=== PATIENT | female | born 2000 | race Caucasian/White ===

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

== ENCOUNTER → 2020-03-27 | Outpatient (CLI) | payer SELFPAY ==
[~2020-03-27] MED LIST changes: +ONDA4ODT MM; +SERTRALINE PO
[2020-03-27 19:34] LABS: BASOPHILS ABSOLUTE AUTO 0.04 K/mm3 (0.00-0.23); BASOPHILS PERCENT AUTO 1 % (0-2); EOSINOPHILS ABSOLUTE AUTO 0.08 K/mm3 (0.00-0.68); EOSINOPHILS PERCENT AUTO 1 % (0-6); Hematocrit 43.3 % (33.0-51.0); Hemoglobin 14.7 g/dL (11.5-16.0); IMMATURE GRAN ABSOLUTE AUTO 0.02 K/mm3 (0.00-0.10); IMMATURE GRAN PERCENT AUTO 0 % (0-1); LYMPHOCYTES ABSOLUTE AUTO 1.89 K/mm3 (0.84-5.20); LYMPHOCYTES PERCENT AUTO 28 % (21-46); MONOCYTES ABSOLUTE AUTO 0.42 K/mm3 (0.16-1.47); MONOCYTES PERCENT AUTO 6 % (4-13); Mean Corpuscular HGB 33.8 pg (26.0-34.0); Mean Corpuscular HGB Conc 33.9 g/dL (31.5-36.5); Mean Corpuscular Volume 100 fL (80-100); Mean Platelet Volume 8.7 fL (9.1-12.4); NEUTROPHILS ABSOLUTE AUTO 4.38 K/mm3 (1.96-9.15); NEUTROPHILS PERCENT AUTO 64 % (41-73); Platelet Count 261 K/mm3 (150-400); RDW Coefficient Variation 11.6 % (11.7-14.2); RDW Standard Deviation 42.5 fL (35.1-46.3); Red Blood Cell Count 4.35 M/mm3 (3.80-5.20); White Blood Cell Count 6.83 K/mm3 (4.00-11.30)
[2020-03-27 20:08] LABS: Alanine Aminotransfer (ALT/SGP 25 U/L (12-78); Albumin, Blood 4.2 g/dL (3.4-5.0); Alk Phos 69 U/L (50-136); Anion Gap 7 mmol/L (6-16); Aspartate Aminotrans (AST/SGOT 17 U/L (12-37); Bilirubin, Total 0.3 mg/dL (0.1-1.0); Blood Urea Nitrogen 22 mg/dL (8-24); Bun/Creatinine Ratio 26.8 (12.0-20.0); CO2, Blood 25 mmol/L (21-32); Calcium, Blood 9.8 mg/dL (8.5-10.1); Chloride, Blood 108 mmol/L (98-108); Creatinine, Blood 0.82 mg/dL (0.40-1.00); Free Thyroxine 0.95 ng/dL (0.70-1.60); Globulin, Blood 4.1 g/dL (2.2-4.0); Glomerular Filtration Rate >60 (60-); Glucose, Blood 95 mg/dL (70-99); Potassium, Blood 3.7 mmol/L (3.5-5.5); Sodium, Blood 140 mmol/L (136-145); Total Protein, Blood 8.3 g/dL (6.4-8.2)
[2020-03-27 20:12] LABS: Thyroid Stimulating Hormone 0.879 uIU/mL (0.360-4.800)
== END | disposition home or self-care (01) ==
LOC: LAB SHORT 17:38
PROVIDERS: Family Medicine
DX: Z00.00 Encounter for general adult medical examination without abnormal findings (principal)
CPT/HCPCS: 80053; 84439; 84443; 85025

== ENCOUNTER 2022-02-21 19:39 | Emergency (ER) | payer OTHER ==
[~2022-02-21] VITALS: Ht 165.1 cm; Wt 82.5 kg
[2022-02-21] MEDS ORDERED: AZIT500 PO (20:19)
== END 2022-02-21 20:25 | disposition home or self-care (01) ==
LOC: ER 19:39
DX: H66.92 Otitis media, unspecified, left ear (principal); J06.9 Acute upper respiratory infection, unspecified; Z88.0 Allergy status to penicillin; Z79.899 Other long term (current) drug therapy; Z87.891 Personal history of nicotine dependence
CPT/HCPCS: 99282

== ENCOUNTER → 2022-07-03 | Outpatient (CLI) | payer OTHER ==
[~2022-07-03] MED LIST changes: +AZIT500 PO; +PROG100 PO; +SUMA25 PO; +TRAZ50 PO
[2022-07-03 11:57] LABS: RETICULOCYTE ABSOLUTE 0.1581 M/mm3 (0.0200-0.1100)
[2022-07-03 13:09] LABS: Albumin, Blood 3.9 g/dL (3.4-5.0); Albumin/Globulin Ratio 1.1 (0.8-1.8); Bilirubin, Total 1.7 mg/dL (0.1-1.0); Bun/Creatinine Ratio 38.2 (12.0-20.0); Calcium, Blood 8.8 mg/dL (8.5-10.1); Creatinine, Blood 0.63 mg/dL (0.40-1.00); Globulin, Blood 3.4 g/dL (2.2-4.0); Potassium, Blood 3.6 mmol/L (3.5-5.5); Total Protein, Blood 7.3 g/dL (6.4-8.2)
[2022-07-03 13:41] LABS: BASOPHILS ABSOLUTE AUTO 0.02 K/mm3 (0.00-0.23); BASOPHILS PERCENT AUTO 0 % (0-2); Hematocrit 19.3 % (33.0-51.0); Hemoglobin 6.2 g/dL (11.5-16.0); IMMATURE GRAN PERCENT AUTO 0 % (0-1); MONOCYTES PERCENT AUTO 5 % (4-13); Mean Corpuscular HGB 36.3 pg (26.0-34.0); Mean Corpuscular HGB Conc 32.1 g/dL (31.5-36.5); Mean Corpuscular Volume 113 fL (80-100); Mean Platelet Volume 10.8 fL (9.1-12.4); Platelet Count 121 K/mm3 (150-400); RDW Coefficient Variation 15.5 % (11.7-14.2); Red Blood Cell Count 1.71 M/mm3 (3.80-5.20); White Blood Cell Count 4.87 K/mm3 (4.00-11.30)
[2022-07-03 14:21] LABS: EOSINOPHILS ABSOLUTE AUTO 0.04 K/mm3 (0.00-0.68); EOSINOPHILS PERCENT AUTO 1 % (0-6); IMMATURE GRAN ABSOLUTE AUTO 0.01 K/mm3 (0.00-0.10); LYMPHOCYTES ABSOLUTE AUTO 1.76 K/mm3 (0.84-5.20); LYMPHOCYTES PERCENT AUTO 36 % (21-46); MONOCYTES ABSOLUTE AUTO 0.23 K/mm3 (0.16-1.47); NEUTROPHILS ABSOLUTE AUTO 2.81 K/mm3 (1.96-9.15); NEUTROPHILS PERCENT AUTO 58 % (41-73); NRBC ABSOLUTE 0.02 K/mm3 (0.00-0.02); NRBC Auto 0.4 /100 WBC (0.0-0.2)
== END | disposition home or self-care (01) ==
LOC: LAB SHORT 10:46 → LAB 10:46
PROVIDERS: Registered Nurse Oncology
DX: D53.9 Nutritional anemia, unspecified (principal)
CPT/HCPCS: 80053; 82977; 83010; 83615; 85025; 85045; 86880

== ENCOUNTER 2022-07-04 00:55 | Day surgery (SDC) | payer OTHER ==
[~2022-07-04 00:55] MED LIST changes: -PROG100 PO; -SUMA25 PO; -TRAZ50 PO
[2022-07-04] MEDS ORDERED: SUMA25 PO (15:28)
[2022-07-04] MEDS ORDERED: TRAZ50 PO (15:29)
[2022-07-04] MEDS ORDERED: PROG100 PO (15:29)
== END 2022-07-04 18:00 | disposition home or self-care (01) ==
LOC: ATC 00:55
DX: D89.89 Other specified disorders involving the immune mechanism, not elsewhere classified (principal)
CPT/HCPCS: 36415; 36430; 86850; 86900; 86901; 86923; C1751; J7050; P9016

== ENCOUNTER → 2022-07-10 | Outpatient (CLI) | payer OTHER ==
[~2022-07-10] MED LIST changes: +CEPHALEXIN500 MG PO; +PROG100; +PROG100 PO; +SUMA25 PO; +TRAZ50 PO
[2022-07-10 13:02] LABS: Source, Urine Voided
[2022-07-10 15:35] LABS: Appearance, Urine Hazy (Clear); Bilirubin, Urine Neg (Neg); Blood, Urine 2+ (Neg); Color, Urine Yellow (P-Yellow); Glucose Qualitative, Urine Neg (Neg); Ketones, Urine Neg (Neg); Leukocyte Esterase, Urine Neg (Neg); Nitrite, Urine Neg (Neg); Protein, Urine 1+ (Neg); Specific Gravity, Urine 1.025 (1.003-1.022); Urobilinogen, Urine NORM (Normal)
[2022-07-10 16:07] LABS: Bacteria Many /hpf; Red Blood Cells, Urine 50-100 /hpf (0-2); Squamous Epithelial Cells Few /hpf (Few); Transitional Epithelial Cells Rare /hpf (0-Rare); White Blood Cells, Urine 0-2 /hpf (0-5)
== END | disposition home or self-care (01) ==
LOC: LAB 12:59 → LAB SHORT 12:59
PROVIDERS: Registered Nurse Oncology
DX: D89.89 Other specified disorders involving the immune mechanism, not elsewhere classified (principal); D75.89 Other specified diseases of blood and blood-forming organs; D50.9 Iron deficiency anemia, unspecified; R94.5 Abnormal results of liver function studies; D51.9 Vitamin B12 deficiency anemia, unspecified
CPT/HCPCS: 81001

== ENCOUNTER 2022-07-11 14:25 | Day surgery (SDC) | payer OTHER ==
[~2022-07-11 14:25] MED LIST changes: -CEPHALEXIN500 MG PO; -PROG100
[2022-07-11] MEDS ORDERED: CEPHALEXIN500 MG PO (15:52)
[2022-07-11] MEDS ORDERED: PROG100 (15:53)
== END 2022-07-11 15:10 | disposition home or self-care (01) ==
LOC: ATC 14:25
DX: Z45.2 Encounter for adjustment and management of vascular access device (principal); D50.9 Iron deficiency anemia, unspecified; D89.89 Other specified disorders involving the immune mechanism, not elsewhere classified
CPT/HCPCS: 99211

== ENCOUNTER 2022-07-17 15:02 | Day surgery (SDC) | payer OTHER | END 2022-07-17 15:44 | disposition home or self-care (01) | LOC: ATC 15:02 | DX: D50.9 Iron deficiency anemia, unspecified (principal); D89.89 Other specified disorders involving the immune mechanism, not elsewhere classified | CPT/HCPCS: 99211 ==

== ENCOUNTER → 2022-07-17 | Outpatient (CLI) | payer OTHER ==
[~2022-07-17] MED LIST changes: +CEPHALEXIN500 MG PO; +PROG100
[2022-07-17 15:23] LABS: Albumin, Blood 3.5 g/dL (3.4-5.0); Albumin/Globulin Ratio 1.2 (0.8-1.8); Bilirubin, Total 1.4 mg/dL (0.1-1.0); Bun/Creatinine Ratio 34.6 (12.0-20.0); Calcium, Blood 8.6 mg/dL (8.5-10.1); Creatinine, Blood 0.69 mg/dL (0.40-1.00); Potassium, Blood 4.1 mmol/L (3.5-5.5); Total Protein, Blood 6.5 g/dL (6.4-8.2)
== END | disposition home or self-care (01) ==
LOC: LAB 15:02 → LAB SHORT 15:02
PROVIDERS: Registered Nurse Oncology
DX: D58.9 Hereditary hemolytic anemia, unspecified (principal)
CPT/HCPCS: 80053

== ENCOUNTER 2022-07-24 01:17 | Day surgery (SDC) | payer OTHER ==
[2022-07-24 10:19] VITALS: BP 131/65
[2022-07-24] MEDS ORDERED: SULFAMETHOXAZO1 EAC1 PO (10:55)
[2022-07-24] MEDS ORDERED: DEXA4 PO (10:56)
== END 2022-07-24 10:29 | disposition home or self-care (01) ==
LOC: ATC 01:17
DX: D50.9 Iron deficiency anemia, unspecified (principal); D51.9 Vitamin B12 deficiency anemia, unspecified; Z87.891 Personal history of nicotine dependence; Z88.0 Allergy status to penicillin; Z91.040 Latex allergy status; Z79.899 Other long term (current) drug therapy
CPT/HCPCS: 99211

== ENCOUNTER → 2022-10-01 | Outpatient (CLI) | payer OTHER ==
[~2022-10-01] MED LIST changes: +DEXA4 PO; +SULFAMETHOXAZO1 EAC1 PO
== END | disposition home or self-care (01) ==
LOC: LAB SHORT 16:36 → LAB 16:36
DX: R19.7 Diarrhea, unspecified (principal)
CPT/HCPCS: 87177; 87209

== ENCOUNTER → 2022-12-21 | Outpatient (CLI) | payer OTHER ==
[~2022-12-21] MED LIST changes: +BENADRYL25 MG PO; +EFFEXOR XR37.5 MG PO; +KETO10 PO; +METO10 PO; +Methocarbamol750 MG PO; +NURTEC ODT75 MG PO; +OMEP20ER PO; +PROGESTERONE200 M1 PO; +REGLAN1013 PO; +Robaxin750 MG PO
== END ==
LOC: LAB 17:24 → LAB SHORT 17:24
DX: R30.0 Dysuria (principal); R31.9 Hematuria, unspecified
CPT/HCPCS: 87086

== ENCOUNTER 2022-12-24 03:39 | Emergency (ER) | payer OTHER ==
[~2022-12-24] VITALS: Ht 165.1 cm; Wt 81.7 kg
[~2022-12-24 03:39] MED LIST changes: -BENADRYL25 MG PO; -EFFEXOR XR37.5 MG PO; -KETO10 PO; -METO10 PO; -Methocarbamol750 MG PO; -NURTEC ODT75 MG PO; -OMEP20ER PO; -PROGESTERONE200 M1 PO; -REGLAN1013 PO; -Robaxin750 MG PO
[2022-12-24 05:05] LABS: BASOPHILS ABSOLUTE AUTO 0.01 K/mm3 (0.00-0.23); BASOPHILS PERCENT AUTO 0 % (0-2); EOSINOPHILS ABSOLUTE AUTO 0.04 K/mm3 (0.00-0.68); EOSINOPHILS PERCENT AUTO 1 % (0-6); Hematocrit 18.5 % (33.0-51.0); IMMATURE GRAN ABSOLUTE AUTO 0.02 K/mm3 (0.00-0.10); IMMATURE GRAN PERCENT AUTO 0 % (0-1); LYMPHOCYTES ABSOLUTE AUTO 1.17 K/mm3 (0.84-5.20); LYMPHOCYTES PERCENT AUTO 16 % (21-46); MONOCYTES ABSOLUTE AUTO 0.32 K/mm3 (0.16-1.47); MONOCYTES PERCENT AUTO 5 % (4-13); Mean Corpuscular HGB 35.4 pg (26.0-34.0); Mean Corpuscular HGB Conc 30.8 g/dL (31.5-36.5); Mean Corpuscular Volume 115 fL (80-100); Mean Platelet Volume 11.6 fL (9.1-12.4); NEUTROPHILS ABSOLUTE AUTO 5.63 K/mm3 (1.96-9.15); NEUTROPHILS PERCENT AUTO 78 % (41-73); NRBC ABSOLUTE 0.03 K/mm3 (0.00-0.02); NRBC Auto 0.4 /100 WBC (0.0-0.2); Platelet Count 90 K/mm3 (150-400); RDW Coefficient Variation 16.9 % (11.7-14.2); RDW Standard Deviation 66.2 fL (35.1-46.3); Red Blood Cell Count 1.61 M/mm3 (3.80-5.20); White Blood Cell Count 7.19 K/mm3 (4.00-11.30)
[2022-12-24 05:32] LABS: Alanine Aminotransfer (ALT/SGP 93 U/L (12-78); Albumin, Blood 4.5 g/dL (3.4-5.0); Albumin/Globulin Ratio 1.2 (0.8-1.8); Alk Phos 76 U/L (50-136); Aspartate Aminotrans (AST/SGOT 177 U/L (12-37); Bilirubin, Direct 0.2 mg/dL (0.0-0.3); Bilirubin, Indirect 1.2 mg/dL (0.1-0.7); Bilirubin, Total 1.4 mg/dL (0.1-1.0); Blood Urea Nitrogen 17 mg/dL (8-24); Bun/Creatinine Ratio 22.5 (12.0-20.0); CO2, Blood 26 mmol/L (21-32); Calcium, Blood 9.4 mg/dL (8.5-10.1); Creatinine, Blood 0.76 mg/dL (0.40-1.00); Globulin, Blood 3.7 g/dL (2.2-4.0); Glomerular Filtration Rate 112 (60-); Glucose, Blood 103 mg/dL (70-99); Magnesium, Blood 2.4 mg/dL (1.6-2.4); Total Protein, Blood 8.2 g/dL (6.4-8.2)
[2022-12-24 05:36] LABS: Hemoglobin 5.7 g/dL (11.5-16.0)
[2022-12-24 05:49] LABS: Acetaminophen, Random <2.0 ug/mL (10.0-30.0)
[2022-12-24] MEDS ORDERED: METO10 PO (06:08)
[2022-12-24] MEDS ORDERED: Robaxin750 MG PO (06:08)
[2022-12-24 06:32] VITALS: BP 120/81
[2022-12-24 13:33] LABS: Anion Gap 7 mmol/L (6-16); Chloride, Blood 106 mmol/L (98-108); Sodium, Blood 139 mmol/L (136-145)
[2022-12-26] MEDS ORDERED: EFFEXOR XR37.5 MG PO (23:21)
[2022-12-26] MEDS ORDERED: BENADRYL25 MG PO (23:22)
[2022-12-26] MEDS ORDERED: PROGESTERONE200 M1 PO (23:24)
[2022-12-26] MEDS ORDERED: Methocarbamol750 MG PO (23:25)
[2022-12-26] MEDS ORDERED: REGLAN1013 PO (23:26)
[2022-12-28] MEDS ORDERED: KETO10 PO (12:14)
[2022-12-28] MEDS ORDERED: OMEP20ER PO (12:15)
[2022-12-28] MEDS ORDERED: ONDA4ODT MM (12:15)
[2022-12-28] MEDS ORDERED: NURTEC ODT75 MG PO (12:15)
== END 2022-12-24 06:33 | disposition left against medical advice (07) ==
LOC: ER 03:39
PROVIDERS: Student in an Organized Health Care Education/Training Program
DX: G43.909 Migraine, unspecified, not intractable, without status migrainosus (principal); D64.9 Anemia, unspecified; M62.838 Other muscle spasm; T39.1X1A Poisoning by 4-Aminophenol derivatives, accidental (unintentional), initial encounter; R74.01 Elevation of levels of liver transaminase levels; D58.9 Hereditary hemolytic anemia, unspecified; M54.2 Cervicalgia; F17.200 Nicotine dependence, unspecified, uncomplicated; Z53.29 Procedure and treatment not carried out because of patient's decision for other reasons; Z88.0 Allergy status to penicillin; Z91.040 Latex allergy status
CPT/HCPCS: 80048; 80076; 83735; 85025; 96361; 96374; 96375; 99283-25; A9270; G0480; J1885; J7030

== ENCOUNTER 2023-01-04 10:31 | Emergency (ER) | payer OTHER ==
[~2023-01-04] VITALS: Ht 165.1 cm; Wt 81.7 kg
[~2023-01-04 10:31] MED LIST changes: +BENADRYL25 MG PO; +EFFEXOR XR37.5 MG PO; +KETO10 PO; +METO10 PO; +Methocarbamol750 MG PO; +NURTEC ODT75 MG PO; +OMEP20ER PO; +PROGESTERONE200 M1 PO; +REGLAN1013 PO; +Robaxin750 MG PO
[2023-01-04 11:45] LABS: BASOPHILS ABSOLUTE AUTO 0.03 K/mm3 (0.00-0.23); BASOPHILS PERCENT AUTO 0 % (0-2); EOSINOPHILS ABSOLUTE AUTO 0.01 K/mm3 (0.00-0.68); EOSINOPHILS PERCENT AUTO 0 % (0-6); Hematocrit 21.6 % (33.0-51.0); IMMATURE GRAN ABSOLUTE AUTO 0.04 K/mm3 (0.00-0.10); IMMATURE GRAN PERCENT AUTO 1 % (0-1); LYMPHOCYTES ABSOLUTE AUTO 1.09 K/mm3 (0.84-5.20); LYMPHOCYTES PERCENT AUTO 15 % (21-46); MONOCYTES ABSOLUTE AUTO 0.57 K/mm3 (0.16-1.47); MONOCYTES PERCENT AUTO 8 % (4-13); Mean Corpuscular HGB 32.4 pg (26.0-34.0); Mean Corpuscular HGB Conc 32.4 g/dL (31.5-36.5); Mean Corpuscular Volume 100 fL (80-100); Mean Platelet Volume 11.7 fL (9.1-12.4); NEUTROPHILS ABSOLUTE AUTO 5.38 K/mm3 (1.96-9.15); NEUTROPHILS PERCENT AUTO 76 % (41-73); NRBC ABSOLUTE 0.02 K/mm3 (0.00-0.02); NRBC Auto 0.3 /100 WBC (0.0-0.2); RDW Standard Deviation 57.4 fL (35.1-46.3); Red Blood Cell Count 2.16 M/mm3 (3.80-5.20); White Blood Cell Count 7.12 K/mm3 (4.00-11.30)
[2023-01-04 11:46] LABS: Albumin, Blood 4.1 g/dL (3.4-5.0); Albumin/Globulin Ratio 1.2 (0.8-1.8); Bilirubin, Total 1.8 mg/dL (0.1-1.0); Bun/Creatinine Ratio 18.6 (12.0-20.0); Calcium, Blood 9.1 mg/dL (8.5-10.1); Creatinine, Blood 0.7 mg/dL (0.40-1.00); Globulin, Blood 3.5 g/dL (2.2-4.0); Potassium, Blood 3.6 mmol/L (3.5-5.5); Total Protein, Blood 7.6 g/dL (6.4-8.2)
[2023-01-04 11:47] LABS: Platelet Count 38 K/mm3 (150-400)
[2023-01-04 14:15] VITALS: BP 110/73
[2023-01-04 14:38] LABS: Source, Urine Clean Catch
[2023-01-04 14:43] LABS: Appearance, Urine Cloudy (Clear); Bilirubin, Urine Neg (Neg); Blood, Urine 2+ (Neg); Color, Urine Yellow (P-Yellow); Glucose Qualitative, Urine Neg (Neg); Ketones, Urine 4+ (Neg); Leukocyte Esterase, Urine 1+ (Neg); Nitrite, Urine Neg (Neg); Protein, Urine 2+ (Neg); Specific Gravity, Urine 1.015 (1.003-1.022); Urobilinogen, Urine 2+ (Normal)
[2023-01-04 14:51] LABS: Amorphous Light (0-Heavy); Bacteria Many /hpf; Squamous Epithelial Cells Many /hpf (Few)
[2023-01-04 14:55] LABS: U Amphetamine Screen Not Detected; U Barbituate Screen Not Detected; U Benzodiazapine Screen Not Detected; U Buprenorphine Screen Not Detected; U Cannabinoids Screen Not Detected; U Cocaine Screen Not Detected; U Methadone Screen Not Detected; U Methamphetamine Screen Not Detected; U Opiates Screen Not Detected; U Oxycodone Screen Not Detected; U Phencyclidine Screen Not Detected; U Propoxyphene Screen Not Detected
== END 2023-01-04 16:09 | disposition left against medical advice (07) ==
LOC: ER 10:31
PROVIDERS: Emergency Medicine
DX: R20.0 Anesthesia of skin (principal); G43.909 Migraine, unspecified, not intractable, without status migrainosus; D64.9 Anemia, unspecified; Z88.0 Allergy status to penicillin; Z91.041 Radiographic dye allergy status; Z79.899 Other long term (current) drug therapy; F17.200 Nicotine dependence, unspecified, uncomplicated
CPT/HCPCS: 70553; 71045; 80053; 81001; 81025; 83690; 85025; 86850; 86900; 86901; 87086; 99284-25; A9579

== ENCOUNTER 2024-05-25 09:24 | Emergency (ER) | payer OTHER ==
[~2024-05-25] VITALS: Ht 165.1 cm; Wt 81.7 kg
[2024-05-25] MEDS ORDERED: ELIQUIS5 M2 PO (09:38)
[2024-05-25 10:09] LABS: BASOPHILS ABSOLUTE AUTO 0.08 K/mm3 (0.00-0.23); BASOPHILS PERCENT AUTO 1 % (0-2); EOSINOPHILS ABSOLUTE AUTO 0.04 K/mm3 (0.00-0.68); EOSINOPHILS PERCENT AUTO 0 % (0-6); Hematocrit 34.6 % (33.0-51.0); Hemoglobin 12.6 g/dL (11.5-16.0); IMMATURE GRAN ABSOLUTE AUTO 0.33 K/mm3 (0.00-0.10); IMMATURE GRAN PERCENT AUTO 2 % (0-1); LYMPHOCYTES ABSOLUTE AUTO 1.97 K/mm3 (0.84-5.20); LYMPHOCYTES PERCENT AUTO 13 % (21-46); MONOCYTES ABSOLUTE AUTO 0.93 K/mm3 (0.16-1.47); MONOCYTES PERCENT AUTO 6 % (4-13); Mean Corpuscular HGB 34.1 pg (26.0-34.0); Mean Corpuscular HGB Conc 36.4 g/dL (31.5-36.5); Mean Corpuscular Volume 94 fL (80-100); Mean Platelet Volume 9.1 fL (9.1-12.4); NEUTROPHILS ABSOLUTE AUTO 11.74 K/mm3 (1.96-9.15); NEUTROPHILS PERCENT AUTO 78 % (41-73); Platelet Count 233 K/mm3 (150-400); RDW Coefficient Variation 15.1 % (11.7-14.2); RDW Standard Deviation 48.8 fL (35.1-46.3); Red Blood Cell Count 3.69 M/mm3 (3.80-5.20); White Blood Cell Count 15.09 K/mm3 (4.00-11.30)
[2024-05-25] MEDS ORDERED: Aspirin 325 MG Tab PO ONE (10:15)
[2024-05-25] MEDS ORDERED: OXYC5 PO (10:28)
[2024-05-25] MEDS ORDERED: [UNRECOGNIZED DRUG - OTHER] PO (10:29)
[2024-05-25 10:41] LABS: Bilirubin, Total 7.2 mg/dL (0.1-1.0); Bun/Creatinine Ratio 22.1 (12.0-20.0); Calcium, Blood 9.7 mg/dL (8.5-10.1); Creatinine, Blood 0.91 mg/dL (0.40-1.00); Potassium, Blood 3.8 mmol/L (3.5-5.5)
[2024-05-25] MEDS ORDERED: LORazepam 1 MG Tab PO ONE (10:50)
[2024-05-25] MEDS ORDERED: Ibuprofen 600 MG Tab PO ONE (10:55)
[2024-05-25] MEDS ORDERED: Acetaminophen 500 MG Tab PO ONE (10:55)
[2024-05-25 13:37] VITALS: BP 115/87
== END 2024-05-25 13:39 | disposition home or self-care (01) ==
LOC: ER 09:24
PROVIDERS: Physician Assistant
DX: R07.89 Other chest pain (principal); D59.9 Acquired hemolytic anemia, unspecified; F17.210 Nicotine dependence, cigarettes, uncomplicated; Z91.040 Latex allergy status; Z79.01 Long term (current) use of anticoagulants; Z79.890 Hormone replacement therapy; Z79.1 Long term (current) use of non-steroidal anti-inflammatories (NSAID); Z79.899 Other long term (current) drug therapy; Z79.630 Long term (current) use of alkylating agent
CPT/HCPCS: 71045; 71260; 80053; 83690; 84484; 84703; 85025; 93005; 93010; 99285-25; A9270; Q9967

== ENCOUNTER 2024-06-17 07:29 | Inpatient (IN) | payer OTHER ==
[~2024-06-17] VITALS: Ht 165.1 cm; Wt 103.2 kg
[~2024-06-17 07:29] MED LIST changes: +ELIQUIS5 M2 PO; +OXYC5 PO; +[UNRECOGNIZED DRUG - OTHER] PO
[2024-06-17] MEDS ORDERED: Ondansetron HCl 2 MG / ML 2ML Vial IV ONE (08:40)
[2024-06-17] MEDS ORDERED: HYDROmorphone HCl/Pf 1MG SYR IV ONE (08:40)
[2024-06-17] MEDS ORDERED: NS 1,000 ML IV SCH (08:40)
[2024-06-17 10:44] LABS: Albumin, Blood 3.5 g/dL (3.4-5.0); Albumin/Globulin Ratio 0.9 (0.8-1.8); Alk Phos 111 U/L (50-136); Anion Gap 11 mmol/L (3-11); Aspartate Aminotrans (AST/SGOT 640 U/L (12-37); Bilirubin, Total 7.7 mg/dL (0.1-1.0); Blood Urea Nitrogen 35 mg/dL (8-24); Bun/Creatinine Ratio 24.5 (12.0-20.0); CO2, Blood 23 mmol/L (21-32); Calcium, Blood 8.9 mg/dL (8.5-10.1); Chloride, Blood 105 mmol/L (98-108); Creatinine, Blood 1.43 mg/dL (0.40-1.00); Glomerular Filtration Rate 52 (60-); Glucose, Blood 92 mg/dL (70-99); Potassium, Blood 2.7 mmol/L (3.5-5.5); Sodium, Blood 136 mmol/L (136-145); Total Protein, Blood 7.5 g/dL (6.4-8.2)
[2024-06-17] MEDS ORDERED: Lactated Ringer's 1,000 ML IV ONE (10:50)
[2024-06-17] MEDS ORDERED: Prochlorperazine Edisylate 10 mg Vial IV ONE (10:55)
[2024-06-17 11:00] LABS: BASOPHILS ABSOLUTE AUTO 0.04 K/mm3 (0.00-0.23); BASOPHILS PERCENT AUTO 0 % (0-2); EOSINOPHILS ABSOLUTE AUTO 0.01 K/mm3 (0.00-0.68); EOSINOPHILS PERCENT AUTO 0 % (0-6); Hematocrit 21.3 % (33.0-51.0); IMMATURE GRAN ABSOLUTE AUTO 0.12 K/mm3 (0.00-0.10); IMMATURE GRAN PERCENT AUTO 1 % (0-1); LYMPHOCYTES ABSOLUTE AUTO 0.58 K/mm3 (0.84-5.20); LYMPHOCYTES PERCENT AUTO 5 % (21-46); MONOCYTES ABSOLUTE AUTO 0.35 K/mm3 (0.16-1.47); MONOCYTES PERCENT AUTO 3 % (4-13); Mean Corpuscular Volume 93 fL (80-100); Mean Platelet Volume 9.7 fL (9.1-12.4); NEUTROPHILS ABSOLUTE AUTO 10.28 K/mm3 (1.96-9.15); NEUTROPHILS PERCENT AUTO 90 % (41-73); NRBC ABSOLUTE 0.05 K/mm3 (0.00-0.02); NRBC Auto 0.4 /100 WBC (0.0-0.2); Platelet Count 145 K/mm3 (150-400); RDW Coefficient Variation 16.3 % (11.7-14.2); RDW Standard Deviation 53.6 fL (35.1-46.3); RETICULOCYTE ABSOLUTE 0.1444 M/mm3 (0.0200-0.1100); RETICULOCYTE COUNT PERCENT 6.28 % (0.50-2.50); White Blood Cell Count 11.38 K/mm3 (4.00-11.30)
[2024-06-17 11:02] LABS: Hemoglobin 6.9 g/dL (11.5-16.0); Mean Corpuscular HGB 30.9 pg (26.0-34.0)
[2024-06-17 11:03] LABS: Mean Corpuscular HGB Conc 32.9 g/dL (31.5-36.5)
[2024-06-17 12:07] LABS: Source, Urine Clean Catch
[2024-06-17 13:31] LABS: Appearance, Urine Bloody (Clear); Bilirubin, Urine Neg (Neg); Blood, Urine 4+ (Neg); Color, Urine Red (P-Yellow); Glucose Qualitative, Urine Neg (Neg); Ketones, Urine Neg (Neg); Leukocyte Esterase, Urine Neg (Neg); Nitrite, Urine Neg (Neg); Protein, Urine 4+ (Neg); Specific Gravity, Urine 1.015 (1.003-1.022); Urobilinogen, Urine NORM (Normal)
[2024-06-17 13:41] LABS: Bacteria Few /hpf; Red Blood Cells, Urine TNTC /hpf (0-2); Squamous Epithelial Cells Many /hpf (Few); White Blood Cells, Urine 0-2 /hpf (0-5)
[2024-06-17] MEDS ORDERED: Potassium Chloride 20 MEQ TabCR PO ONE (15:05)
[2024-06-17] MEDS ORDERED: Ondansetron HCl 2 MG / ML 2ML Vial IV PRN (17:30)
[2024-06-17] MEDS ORDERED: FLU VACC TS2024-25(6MOS UP)/PF 45 MCG/0.5 ML SYRINGE IM SCH (17:30)
[2024-06-17] MEDS ORDERED: NS 1,000 ML IV ONE ×2 (17:35→19:45)
[2024-06-17 19:07] VITALS: BP 119/81
[2024-06-17 19:42] LABS: Hematocrit 22.3 % (33.0-51.0); Hemoglobin 8.2 g/dL (11.5-16.0)
[2024-06-17] MEDS ORDERED: Acetaminophen 325 MG TABLET PO PRN (19:50)
[2024-06-17] MEDS ORDERED: ONDA4 PO (20:34)
[2024-06-18] VITALS (16 sets, daily range): BP systolic 105–140; BP diastolic 63–94
[2024-06-18 01:56] LABS: Hematocrit 17.5 % (33.0-51.0)
[2024-06-18] MEDS ORDERED: OxyCODONE HCL 10 MG TABCR PO PRN (02:50)
[2024-06-18] MEDS ORDERED: OxyCODONE HCL 5 MG TAB PO PRN ×2 (03:10→08:45)
[2024-06-18 03:24] LABS: Hemoglobin 5.8 g/dL (11.5-16.0)
--- NOTE | 2024-06-18 03:43 | NUR ---
SHIFT SUMMARY ADMITTED TO ROOM 325 AT 1930 ,HAVING LOWER ABDOMINAL PAIN, DELTA BLOOD IN URINE AND STOOL AND DIFFICULTY SWALLOWING. AWAITING A BED AT [facility]. HAS A REAR BLOOD DISORDER. VS HAVE BEEN STABLE, NO BM HOWEVER URINE VISUALIZED AND IS MAROON IN COLOR. BLADDER SCAN DONE AFTER A VOID OF 500 ML AT 0230 AND WAS 0 PT WAS REPORTING SENSATION IF NOT FULLY NOT EMPTYING. MEDICATED FOR A HEADACH WITH TYLENOL WHICH WAS EFFECTIVE, ABD PAIN WAS UNDER CONTROL ON ADMISSION HAD PAIN MEDS IN ED, PAIN RETURNED DURING THE NIGHT AND MD WAS NOTIFIED AND PT RECEIVED OXYCODONE 5MG. HGB 8.2 FOLLOWING BLOOD TRANFUSION IN ED (6.9 PRIOR TO TRANSFUSION). CRITICAL LAB VALUE AT 0145 HEMATOCRIT RESULTED AT 17.5 WHICH WAS A DROP AND DR WAS NOTIFIED (HGB RESULT WAS STILL PENDING D/T ISSUES WITH HEMOLYSIS OF THE SAMPLE & IT DID NOT RESULT UNTIL APPROX 0300 PER LAB WAS 5.[address] WAS NOTIFIED AND NEW ORDER FOR A STAT H& H. STST H& H DRAWN 0400 & RESULTS PENDING. PT DENIES ANY WEAKNESS, LIGHTHEADEDNES DIZZINESS AGREES TO NOTIFY STAFF WITH EACH VOID AND IF HAS ANY OF ABOVE SX. BP REMAINS STABLE (0400) BP 125/78 AT 0210 AND 119/85 AT 0400 HAS BEEN IN NSR PER TELEMETRY EXCEPT HR 140-150 PER TELETECH FOR ABOUT 10 MINUTES AT 0025 AT WHICH TIME PT WAS UP TO BATHROOM.
[2024-06-18 04:52] LABS: Hematocrit 16.4 % (33.0-51.0)
[2024-06-18] MEDS ORDERED: NS 500 ML IV SCH (05:20)
[2024-06-18 06:25] LABS: Hemoglobin 5.5 g/dL (11.5-16.0)
[2024-06-18] MEDS ORDERED: Morphine Sulfate 4 MG/1 ML Injection IV PRN (08:45)
[2024-06-18] MEDS ORDERED: Acetaminophen 500 MG Tab PO PRN (08:45)
[2024-06-18] MEDS ORDERED: Metoclopramide HCl 5MG / ML 2ML Vial IV PRN ×2 (08:45→15:25)
[2024-06-18] MEDS ORDERED: LORazepam 2 MG/ML 1ML Injection IV ONE (09:00)
[2024-06-18] MEDS ORDERED: Misc. Capsule PO SCH (09:00)
--- NOTE | 2024-06-18 09:00 | NUR ---
Pt sitting up in bed awake a/ox4, she is a bit nauseated but too early for cam, family in room, Dr. Chavira in room, she is a bit tearful states she doesn't feel good, will place orders for antiemetic, and will transfuse a unit of prbc, lungs are clear t/o, on r/a, no cough noted, hrr, no edema noted, power glide placed this am, difficult to draw from power glide, up to br with one person assist, call light in reach.
[2024-06-18 09:15] LABS: BASOPHILS ABSOLUTE AUTO 0.07 K/mm3 (0.00-0.23); BASOPHILS PERCENT AUTO 1 % (0-2); EOSINOPHILS ABSOLUTE AUTO 0.06 K/mm3 (0.00-0.68); EOSINOPHILS PERCENT AUTO 1 % (0-6); IMMATURE GRAN ABSOLUTE AUTO 0.09 K/mm3 (0.00-0.10); IMMATURE GRAN PERCENT AUTO 1 % (0-1); LYMPHOCYTES ABSOLUTE AUTO 2.16 K/mm3 (0.84-5.20); LYMPHOCYTES PERCENT AUTO 17 % (21-46); MONOCYTES ABSOLUTE AUTO 0.72 K/mm3 (0.16-1.47); MONOCYTES PERCENT AUTO 6 % (4-13); Mean Corpuscular HGB 29.7 pg (26.0-34.0); Mean Corpuscular HGB Conc 32.3 g/dL (31.5-36.5); Mean Corpuscular Volume 92 fL (80-100); Mean Platelet Volume 9.7 fL (9.1-12.4); NEUTROPHILS ABSOLUTE AUTO 9.99 K/mm3 (1.96-9.15); NEUTROPHILS PERCENT AUTO 76 % (41-73); NRBC ABSOLUTE 0.08 K/mm3 (0.00-0.02); NRBC Auto 0.6 /100 WBC (0.0-0.2); Platelet Count 196 K/mm3 (150-400); RDW Coefficient Variation 17.5 % (11.7-14.2); RDW Standard Deviation 56.6 fL (35.1-46.3); Red Blood Cell Count 1.82 M/mm3 (3.80-5.20); White Blood Cell Count 13.09 K/mm3 (4.00-11.30)
--- NOTE | 2024-06-18 09:18 | NUR ---
PATIENT STATES SHE SPOKE WITH DR. SELINA NETTLES, CLINICAL RESEARCH MONITOR @ [facility] YESTERDAY AND HE SUGGESTED HAVING IMAGING DONE TO RULE OUT ULCERATION OR BLOOD CLOT IN THE UPPER STOMACH.
[2024-06-18 09:26] LABS: Hematocrit 16.7 % (33.0-51.0); Hemoglobin 5.4 g/dL (11.5-16.0)
[2024-06-18 09:32] LABS: Albumin, Blood 3.5 g/dL (3.4-5.0); Albumin/Globulin Ratio 0.9 (0.8-1.8); Alk Phos 110 U/L (50-136); Anion Gap 9 mmol/L (3-11); Aspartate Aminotrans (AST/SGOT 1032 U/L (12-37); Bilirubin, Total 5.6 mg/dL (0.1-1.0); Blood Urea Nitrogen 32 mg/dL (8-24); Bun/Creatinine Ratio 21.2 (12.0-20.0); CO2, Blood 23 mmol/L (21-32); Calcium, Blood 8.9 mg/dL (8.5-10.1); Chloride, Blood 110 mmol/L (98-108); Creatinine, Blood 1.51 mg/dL (0.40-1.00); Globulin, Blood 3.7 g/dL (2.2-4.0); Glomerular Filtration Rate 49 (60-); Glucose, Blood 65 mg/dL (70-99); Potassium, Blood 3.6 mmol/L (3.5-5.5); Sodium, Blood 138 mmol/L (136-145); Total Protein, Blood 7.2 g/dL (6.4-8.2)
--- NOTE | 2024-06-18 10:58 | NUR ---
transfusion running, pt heart rate keeps increasing to 120's when pt gets up to br, she is sweating and nauseated again, zofran given with good results, sipping on starry at this time, call light in reach.
--- NOTE | 2024-06-18 11:00 | NUR ---
urine is maroon colored, pt states she has to push to void. will be moving to pcu as soon as bed available. call light in reach. family in room.
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
--- NOTE | 2024-06-18 12:27 | NUR ---
Report given to Ruben DUARTE, took pt to pcu 1 via bed with all her belongings.
--- NOTE | 2024-06-18 13:45 | NUR ---
ARRIVAL TO PCU PT ARRIVED TO PCU 1 AT APPROXIMATELY 1220. PT A&Ox4, CALLS AND COMMUNICATES NEEDS APPROPRIATELY. 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 PT SBA WITH AMBULATION. PT ARRIVED WHILE BLOOD TRANSFUSING. BP STABLE, SINUS 80's, DENIES CP/PRESSURE. SpO2> 92% RA, DENIES SOB, LUNGS CLEAR. CONTINENT OF URINE AND BOWEL. URINE IS VERY DARK RED AND PT REPORTS HAVING TO PUT EFFORT INTO STARTING VOID. NO C/O PAIN. FAMILY AT BEDSIDE. CALL LIGHT IN REACH, BED IN LOWEST POSITION.
--- NOTE | 2024-06-18 13:47 | NUR ---
BLOOD TRANSFUSION PAUSED FOR STAT LAB DRAW PER PHYSICIAN
--- NOTE | 2024-06-18 14:13 | NUR ---
BLOOD TRANSFUSION RESTARTED, LAB DRAWN DONE.
[2024-06-18 14:34] LABS: Hematocrit 18.6 % (33.0-51.0); Hemoglobin 6.6 g/dL (11.5-16.0); IMMATURE RETIC FRACTION 30.7 % (2.3-16.0); RETIC HGB EQUIVALENT 29.2 pg (28.20-36.60); RETICULOCYTE ABSOLUTE 0.1169 M/mm3 (0.0200-0.1100); RETICULOCYTE COUNT PERCENT 5.76 % (0.50-2.50)
[2024-06-18 14:52] LABS: Bilirubin, Direct <0.1 mg/dL (0.0-0.3); Bilirubin, Total 4.9 mg/dL (0.1-1.0)
[2024-06-18] MEDS ORDERED: NS 250 ML IV ONE (15:35)
[2024-06-18 15:50] LABS: Bilirubin, Indirect Unable to Calculate mg/dL (0.1-0.7); Lactate Dehydrogenase (Ld),Bld 7218 U/L (100-240)
[2024-06-18 16:56] LABS: Source, Urine Clean Catch
[2024-06-18 17:03] LABS: Hematocrit 22.4 % (33.0-51.0); Hemoglobin 8.1 g/dL (11.5-16.0)
[2024-06-18 17:05] LABS: Appearance, Urine Bloody (Clear); Bilirubin, Urine Neg (Neg); Blood, Urine 5+ (Neg); Color, Urine Red (P-Yellow); Glucose Qualitative, Urine Neg (Neg); Ketones, Urine Neg (Neg); Leukocyte Esterase, Urine Neg (Neg); Nitrite, Urine Neg (Neg); Protein, Urine 4+ (Neg); Urobilinogen, Urine NORM (Normal)
[2024-06-18 17:34] LABS: Bacteria Many /hpf; Squamous Epithelial Cells Many /hpf (Few); Transitional Epithelial Cells Rare /hpf (0-Rare)
[2024-06-18 17:35] LABS: Amorphous Heavy (0-Heavy); Mucus Light (0-Heavy)
--- NOTE | 2024-06-18 18:32 | NUR ---
SHIFT SUMMARY SEE PREVIOUS NOTES. NO ACUTE CHANGES. VSS. MANAGED PAIN AND NAUSEA PER EMAR. PT CONTINUES TO HAVE HEMATURIA & BLOODY STOOL. FAMILY AT BEDSIDE. AWAITING COBRA TRANSFER. NO OTHER EVENTS, WILL REPORT TO ONCOMING RN.
[2024-06-18 19:04] LABS: Hematocrit 22.1 % (33.0-51.0); Hemoglobin 7.9 g/dL (11.5-16.0)
[2024-06-18 21:02] LABS: Hemoglobin 7.9 g/dL (11.5-16.0)
--- NOTE | 2024-06-18 21:22 | NUR ---
[facility] CALLED BACK TO [facility] AND REQUESTED [facility] TO LOOK FOR ALTERNATIVE BED FOR PATIENT. THERE IS AVALIABLE BED IN [place] ON [address]. [facility] TO CONTACT [facility] ADVERTISING SPECIALIST IN REGARDS.
[2024-06-18 23:04] LABS: Hematocrit 21.1 % (33.0-51.0); Hemoglobin 7.4 g/dL (11.5-16.0)
--- NOTE | 2024-06-18 23:05 | NUR ---
PATIENT ACCEPTED TO [facility] IN [place]-AT THIS TIME WE ARE AWAITING A ROOM- ONCE ROOM KNOWN TRANSPORT WILL BE ARRANGED.
[2024-06-19 00:06] VITALS: BP 140/91
--- NOTE | 2024-06-19 00:11 | NUR ---
SHIFT SUMMARY. TRANSPORT CAME TO [facility] PATIENT AT 0005, PATIENT LEFT HOSPITAL AT 0010 [facility]. PATIENT ABLE TO TRANSPORT SELF TO [facility]. PATIENT LEFT WITH ALL HER PERSONAL BELONGINGS IN A PERSONAL BELONGINGS BAG.
--- NOTE | 2024-06-19 00:22 | NUR ---
THIS RN ATTEMPTED TO CALL REPORT TO [facility]-SPOKE WITH BREAK NURSE WHO REPORTS THAT PRIMARY NURSE IS ON BREAK TIL 0100-BREAK NURSE REQUEST CALL BACK TO PRIMARY NURSE-THIS RN LET BREAK NURSE KNOW THAT TRANSPORT TAKES APPROX 2.5 HOURS TO 3 HOURS FOR TRANSPORT. THIS RN WILL CALL REPORT AT 0100 TO PRIMARY NURSE AT [facility].
--- NOTE | 2024-06-19 01:07 | NUR ---
SPOKE WITH MALE BREAK NURSE AND GAVE REPORT ON PATIENT. RECEIVING HOSPITAL NURSE NOTIFIED OF PATIENTS DIAGNOSIS, MEDICAL HISTORY, LABS, LAST HEMAGLOBIN, LAST VITAL SIGNS TAKEN AT [facility], SKIN, MOBILITY, ORIENTATION, RIGHT FOOT DROP AND ALL QUESTIONS ANSWERED. MALE BREAK NURSE TO HANDOFF REPORT TO PRIMARY NURSE ONCE PRIMARY NURSE RETURNS FROM BREAK.
== END 2024-06-19 00:07 | disposition short-term general hospital (02) | DRG 810 ==
LOC: ER 07:29 → ERHOLD 07:30 → MEDS 07:30 → PCU 06-18 12:37
PROVIDERS: Emergency Medicine; Family Medicine; Student in an Organized Health Care Education/Training Program; ADMIT Internal Medicine
PROC: 30233N1 Transfusion of Nonautologous Red Blood Cells into Peripheral Vein, Percutaneous Approach (ICD-10-PCS; principal; 2024-06-17)
DX: D59.5 Paroxysmal nocturnal hemoglobinuria [Marchiafava-Micheli] (principal); G43.909 Migraine, unspecified, not intractable, without status migrainosus; E87.6 Hypokalemia; D69.6 Thrombocytopenia, unspecified; D58.9 Hereditary hemolytic anemia, unspecified; F41.9 Anxiety disorder, unspecified; F17.200 Nicotine dependence, unspecified, uncomplicated; Z86.73 Personal history of transient ischemic attack (TIA), and cerebral infarction without residual deficits; Z79.01 Long term (current) use of anticoagulants; Z79.899 Other long term (current) drug therapy; Z91.040 Latex allergy status; F17.210 Nicotine dependence, cigarettes, uncomplicated; Z79.2 Long term (current) use of antibiotics
CPT/HCPCS: 36415; 36430; 74177; 80053; 81001; 82247; 82248; 83605; 83615; 83690; 84703; 85014; 85018; 85025; 85045; 86850; 86900; 86901; 86920; 93975; 96374; 96375; 99285-25; A9270; G0378; J0780; J1171; J2060; J2405; J2765; J7030; J7040; J7050; J7120; P9016; Q9967

== ENCOUNTER 2024-07-01 04:30 | Day surgery (SDC) | payer OTHER ==
[2024-06-30 11:36] LABS: BASOPHILS ABSOLUTE AUTO 0.04 K/mm3 (0.00-0.23); BASOPHILS PERCENT AUTO 1 % (0-2); EOSINOPHILS ABSOLUTE AUTO 0.04 K/mm3 (0.00-0.68); EOSINOPHILS PERCENT AUTO 1 % (0-6); Hematocrit 22.7 % (33.0-51.0); Hemoglobin 7.2 g/dL (11.5-16.0); IMMATURE GRAN ABSOLUTE AUTO 0.04 K/mm3 (0.00-0.10); IMMATURE GRAN PERCENT AUTO 1 % (0-1); LYMPHOCYTES ABSOLUTE AUTO 1.61 K/mm3 (0.84-5.20); LYMPHOCYTES PERCENT AUTO 22 % (21-46); MONOCYTES ABSOLUTE AUTO 0.35 K/mm3 (0.16-1.47); MONOCYTES PERCENT AUTO 5 % (4-13); Mean Corpuscular HGB 32.1 pg (26.0-34.0); Mean Corpuscular HGB Conc 31.7 g/dL (31.5-36.5); Mean Corpuscular Volume 101 fL (80-100); Mean Platelet Volume 10.5 fL (9.1-12.4); NEUTROPHILS ABSOLUTE AUTO 5.12 K/mm3 (1.96-9.15); NEUTROPHILS PERCENT AUTO 71 % (41-73); NRBC ABSOLUTE 0.03 K/mm3 (0.00-0.02); NRBC Auto 0.4 /100 WBC (0.0-0.2); Platelet Count 186 K/mm3 (150-400); RDW Coefficient Variation 20.3 % (11.7-14.2); Red Blood Cell Count 2.24 M/mm3 (3.80-5.20)
[~2024-07-01 04:30] MED LIST changes: +ONDA4 PO
[2024-07-01] MEDS ORDERED: Acetaminophen 325 MG TABLET PO PRN (06:55)
[2024-07-01] MEDS ORDERED: NS 250 ML IV SCH (06:55)
[2024-07-01] MEDS ORDERED: DiphenhydrAMINE HCL 25 MG Cap PO PRN (06:55)
[2024-07-01] MEDS ORDERED: PROC5 PO (07:42)
[2024-07-01] MEDS ORDERED: PENVK500 PO (07:44)
[2024-07-01 07:50] VITALS: BP 140/75
[2024-07-01 08:12] VITALS: BP 120/82
[2024-07-01 09:12] VITALS: BP 112/81
[2024-07-01 10:07] VITALS: BP 121/62
[2024-07-01 11:07] VITALS: BP 100/60
[2024-07-01 11:56] VITALS: BP 114/71
== END 2024-07-01 11:56 ==
LOC: ATC 04:30
PROVIDERS: Nurse Practitioner
DX: D59.5 Paroxysmal nocturnal hemoglobinuria [Marchiafava-Micheli] (principal); D59.9 Acquired hemolytic anemia, unspecified; D58.8 Other specified hereditary hemolytic anemias; D69.6 Thrombocytopenia, unspecified; Z87.891 Personal history of nicotine dependence; Z79.01 Long term (current) use of anticoagulants; Z79.2 Long term (current) use of antibiotics; Z79.899 Other long term (current) drug therapy; Z91.040 Latex allergy status
CPT/HCPCS: 36415; 36430; 85025; 86850; 86900; 86901; 86923; A9270; J7050; P9016

== ENCOUNTER 2024-07-05 09:20 | Day surgery (SDC) | payer OTHER ==
[~2024-07-05 09:20] MED LIST changes: +PENVK500 PO; +PROC5 PO
[2024-07-05 10:07] LABS: BASOPHILS ABSOLUTE AUTO 0.05 K/mm3 (0.00-0.23); BASOPHILS PERCENT AUTO 1 % (0-2); EOSINOPHILS ABSOLUTE AUTO 0.04 K/mm3 (0.00-0.68); EOSINOPHILS PERCENT AUTO 1 % (0-6); Hematocrit 30.8 % (33.0-51.0); IMMATURE GRAN ABSOLUTE AUTO 0.02 K/mm3 (0.00-0.10); IMMATURE GRAN PERCENT AUTO 0 % (0-1); LYMPHOCYTES ABSOLUTE AUTO 1.41 K/mm3 (0.84-5.20); LYMPHOCYTES PERCENT AUTO 22 % (21-46); MONOCYTES ABSOLUTE AUTO 0.39 K/mm3 (0.16-1.47); MONOCYTES PERCENT AUTO 6 % (4-13); Mean Corpuscular HGB 31.6 pg (26.0-34.0); Mean Corpuscular HGB Conc 32.5 g/dL (31.5-36.5); Mean Corpuscular Volume 98 fL (80-100); Mean Platelet Volume 10.3 fL (9.1-12.4); NEUTROPHILS ABSOLUTE AUTO 4.42 K/mm3 (1.96-9.15); NEUTROPHILS PERCENT AUTO 70 % (41-73); Platelet Count 165 K/mm3 (150-400); RDW Coefficient Variation 18.5 % (11.7-14.2); RDW Standard Deviation 57.3 fL (35.1-46.3); Red Blood Cell Count 3.16 M/mm3 (3.80-5.20); White Blood Cell Count 6.33 K/mm3 (4.00-11.30)
== END 2024-07-05 23:00 | disposition home or self-care (01) ==
LOC: LAB SHORT 09:20 → MHTC 09:20 → ORSCMMR 09:20 → LAB 23:00 → ORSCMMR 23:00 → EDSTATUS 06-27 12:50 → LAB FUT 06-27 12:50
PROVIDERS: Nurse Practitioner
DX: D59.5 Paroxysmal nocturnal hemoglobinuria [Marchiafava-Micheli] (principal)
CPT/HCPCS: 36415; 85025; 86850; 86900; 86901

== ENCOUNTER → 2024-07-15 | Outpatient (CLI) | payer OTHER | LOC: LAB SHORT 08:15 → LAB 08:15 | DX: R39.9 Unspecified symptoms and signs involving the genitourinary system (principal) | CPT/HCPCS: 87086 ==